=== PATIENT | male | born 1945 | race Caucasian/White ===

== ENCOUNTER → 2020-10-29 | Outpatient (CLI) | payer OTHER ==
[~2020-10-29] MED LIST: ASPIRIN325; FISH OIL 1,0001 EAC5; HYDROCHLOROTHIA25 M1; IBUPROFEN 600600 M1 PO; MINOCYCLINE HC100 M2; TRAMADOL 50 MG50 MG PO; VIAGRA100 MG
== END ==
LOC: M.CT 09:27
PROVIDERS: ATTEND Family Medicine
DX: Z12.2 Encounter for screening for malignant neoplasm of respiratory organs (principal); J84.10 Pulmonary fibrosis, unspecified; M25.78 Osteophyte, vertebrae; I70.0 Atherosclerosis of aorta; I25.10 Atherosclerotic heart disease of native coronary artery without angina pectoris; Z87.891 Personal history of nicotine dependence